=== PATIENT | male | born 1950 | race Caucasian/White ===

== ENCOUNTER 2022-05-28 06:10 | Day surgery (SDC) | payer OTHER ==
[~2022-05-28] VITALS: Ht 158.8 cm; Wt 63.6 kg
[2022-05-28] MEDS ORDERED: LIDOCAINE 2% 11 ML JELLY TP ONE (06:11)
[2022-05-28] MEDS ORDERED: LIDOCAINE 4% 50 ML SOLUTION TP ONE (06:11)
[2022-05-28] MEDS ORDERED: BENZOCAINE 20% 50 MCG/SPRAY 57 GM TP ONE (06:11)
[2022-05-28] MEDS ORDERED: SODIUM CHLORIDE 0.9% 1,000 ML ONE (06:40)
[2022-05-28 06:54] LABS: COVID AG,FIA SOURCE NASOPHARYNGEAL
[2022-05-28] MEDS ORDERED: SODIUM CHLORIDE 0.9% 1,000 ML IV ONE (07:00)
[2022-05-28] MEDS ORDERED: MIDAZOLAM HCL 2 MG/2 ML VIAL ONE (07:59)
[2022-05-28] MEDS ORDERED: FentaNYL CITRATE PF 100 MCG/2 ML VIAL ONE (08:00)
[2022-05-28 08:35] LABS: GLUCOMETER DEV NAME(LOC) SDS.; GLUCOSE,POINT OF CARE 84 MG/DL (70-110)
[2022-05-28] MEDS ORDERED: MethylPREDNISolone SOD SUCC 125 MG/2 ML VIAL IVP ONE (09:30)
[2022-05-28] MEDS ORDERED: MethylPREDNISolone SOD SUCC 125 MG/2 ML VIAL ONE (09:40)
[2022-05-28] MEDS ORDERED: OXYGEN THERAPY IH SCH (20:00)
== END 2022-05-28 11:50 | disposition home or self-care (01) ==
LOC: SURGERY 06:10
PROVIDERS: ATTEND Internal Medicine Critical Care Medicine
DX: J38.4 Edema of larynx (principal); B37.0 Candidal stomatitis; Z79.899 Other long term (current) drug therapy; Z72.89 Other problems related to lifestyle; Z79.82 Long term (current) use of aspirin; E11.9 Type 2 diabetes mellitus without complications; Z98.890 Other specified postprocedural states; Z20.822 Contact with and (suspected) exposure to COVID-19
CPT/HCPCS: 31623; 87101; 88112; 82962; 87220; 87070; 88305; 31624; 71045; 87015; 87426; 87206; J3010; J2250; J2930; Q9967; J7030; C9803; Z7610

== ENCOUNTER 2024-02-24 07:09 | Day surgery (SDC) | payer OTHER ==
[~2024-02-24 07:09] MED LIST: SODIUM CHLORIDE 0.9% 1,000 ML ONE
[2024-02-24] MEDS ORDERED: ALBUTEROL SULFATE 2.5 MG/0.5 ML NEB SOLUTION NEB ONE (07:10)
[2024-02-24] MEDS ORDERED: LIDOCAINE 2% 11 ML JELLY TP ONE (07:10)
[2024-02-24] MEDS ORDERED: LIDOCAINE 4% 50 ML SOLUTION TP ONE (07:10)
[2024-02-24] MEDS ORDERED: BENZOCAINE 20% 50 MCG/SPRAY 57 GM TP ONE (07:10)
[2024-02-24] MEDS ORDERED: FERR325T22 PO (07:51)
[2024-02-24] MEDS ORDERED: DIPH-1237 PO (07:51)
[2024-02-24] MEDS ORDERED: CHOL200059 PO (07:51)
[2024-02-24] MEDS ORDERED: ATOR-2 PO (07:51)
[2024-02-24] MEDS ORDERED: AMLO2.5T29 PO (07:51)
[2024-02-24] MEDS ORDERED: EMPA10TA3 PO (07:51)
[2024-02-24] MEDS ORDERED: CLOP75TA32 PO (07:51)
[2024-02-24] MEDS ORDERED: METF-446 PO (07:51)
[2024-02-24] MEDS ORDERED: LOSA100T59 PO (07:51)
[2024-02-24] MEDS ORDERED: MIDAZOLAM HCL 2 MG/2 ML VIAL ONE (08:30)
[2024-02-24] MEDS ORDERED: FentaNYL CITRATE PF 100 MCG/2 ML VIAL ONE (08:31)
[2024-02-24] MEDS: SODIUM CHLORIDE 0.9% 1,000 ML IV ONE (08:49)
[2024-02-24 09:01] LABS: GLUCOMETER DEV NAME(LOC) SDS.; GLUCOSE,POINT OF CARE 129 MG/DL (70-110)
[2024-02-24 09:35] VITALS: PULSE 56; RESP 16; O2SAT 97
[2024-02-24] MEDS: MethylPREDNISolone SOD SUCC 125 MG/2 ML VIAL IVP ONE (10:30)
== END 2024-02-24 11:45 | disposition home or self-care (01) ==
LOC: SURGERY 07:09
PROVIDERS: ATTEND Internal Medicine Critical Care Medicine
DX: R05.3 Chronic cough (principal); R06.2 Wheezing; R49.0 Dysphonia; R04.2 Hemoptysis; R06.1 Stridor; B37.0 Candidal stomatitis; E11.9 Type 2 diabetes mellitus without complications; E78.00 Pure hypercholesterolemia, unspecified; Z79.82 Long term (current) use of aspirin; Z98.890 Other specified postprocedural states
CPT/HCPCS: 31623; 82962; 87206; 87101; 87220; 87070; 88108; 31624; 94640; 71045; 87015; J3010; J2250; J7030; J7613; Z7610

== ENCOUNTER 2025-03-08 06:29 | Day surgery (SDC) | payer OTHER ==
[~2025-03-08] VITALS: Ht 158.8 cm; Wt 60.9 kg
[~2025-03-08 06:29] MED LIST changes: +AMLO2.5T29 PO; +ATOR-2 PO; +CHOL200059 PO; +CLOP75TA32 PO; +DIPH-1237 PO; +EMPA10TA3 PO; +FERR325T22 PO; +LOSA100T59 PO; +METF-446 PO; -SODIUM CHLORIDE 0.9% 1,000 ML ONE
[2025-03-08] MEDS ORDERED: LIDOCAINE 2% 11 ML JELLY TP ONE (06:30)
[2025-03-08] MEDS ORDERED: BENZOCAINE 20% 50 MCG/SPRAY 57 GM TP ONE (06:30)
[2025-03-08] MEDS ORDERED: ALBUTEROL SULFATE 2.5 MG/0.5 ML NEB SOLUTION NEB ONE (06:30)
[2025-03-08] MEDS ORDERED: LIDOCAINE 4% 50 ML SOLUTION TP ONE (06:30)
[2025-03-08] MEDS ORDERED: SODIUM CHLORIDE 0.9% 1,000 ML ONE (07:47)
[2025-03-08] MEDS ORDERED: FentaNYL CITRATE PF 100 MCG/2 ML VIAL ONE (08:05)
[2025-03-08] MEDS ORDERED: MIDAZOLAM HCL 2 MG/2 ML VIAL ONE (08:05)
[2025-03-08 08:35] LABS: GLUCOMETER DEV NAME(LOC) SDS.; GLUCOSE,POINT OF CARE 103 MG/DL (70-110)
[2025-03-08] MEDS: SODIUM CHLORIDE 0.9% 1,000 ML IV ONE (08:35)
[2025-03-08 09:30] VITALS: PULSE 60; RESP 16; O2SAT 100
== END 2025-03-08 14:10 | disposition home or self-care (01) ==
LOC: SDS 06:29
PROVIDERS: ATTEND Internal Medicine Critical Care Medicine
DX: R05.3 Chronic cough (principal); R04.2 Hemoptysis; R49.0 Dysphonia; R06.1 Stridor; R91.8 Other nonspecific abnormal finding of lung field; Z98.890 Other specified postprocedural states; E11.9 Type 2 diabetes mellitus without complications; E78.00 Pure hypercholesterolemia, unspecified; Z79.02 Long term (current) use of antithrombotics/antiplatelets; Z79.84 Long term (current) use of oral hypoglycemic drugs; Z79.899 Other long term (current) drug therapy; I45.10 Unspecified right bundle-branch block
CPT/HCPCS: 31623; 93005; 82962; 87206; 87101; 87220; 87070; 88108; 31624; 94640; 71045; 87015; J3010; J2250; J2919; J7030; J7613; Z7610